=== PATIENT | male | born 1980 | race Caucasian/White ===

== ENCOUNTER 2019-03-15 01:47 | Emergency (ER) | payer OTHER ==
[2019-03-15 02:03] VITALS: BP 117/75
[2019-03-15] MEDS ORDERED: CHERRY SYRUP 10 ML UDC PO ONE (02:11)
[2019-03-15] MEDS ORDERED: DEXAMETHASONE 10 MG/ML VIAL PO STA (02:11)
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
== END 2019-03-15 03:00 | disposition home or self-care (01) ==
LOC: ED 01:47
DX: J70.5 Respiratory conditions due to smoke inhalation (principal); X08.8XXA Exposure to other specified smoke, fire and flames, initial encounter; Y92.009 Unspecified place in unspecified non-institutional (private) residence as the place of occurrence of the external cause; F17.200 Nicotine dependence, unspecified, uncomplicated
CPT/HCPCS: 71046; 99283; A9270

== ENCOUNTER 2019-06-28 14:54 | Emergency (ER) | payer OTHER ==
--- NOTE | 2019-06-28 18:04 | ED Physician Documentation ---
History of Present Illness - Stated complaint Stated Complaint: COUGH, CONGESTION - Chief complaint Chief Complaint: Resp - History obtained from History obtained from: Patient - History of Present Illness Pain level max: 0 Pain level now: 0 - Additonal information Additional information: 38-year-old male who is otherwise healthy presents to the emergency department because of cough since June 13, 2019. Patient started with a sore throat initial and then a fever for 2 days. Patient went to an urgent care and was prescribed Tessalon Perles and Sudafed. Patient denies any nausea, vomiting or diarrhea. Patient started feeling better until about a week ago when he started to have a nonproductive cough. Patient also reported of blood tinge sputum yesterday and when he blows his nose, he had a nosebleed as well. He denies a fever currently. Cough is worse at night. Patient has taken tzgs-pxs-zjrvfyw Robitussin without improvement of his cough. His had similar symptoms after the patient gotten sick but she is already doing better. Review of Systems Constitutional: reports: Fever, Chills Eyes: denies: Loss of vision, Decreased vision, Photophobia Ears: denies: Loss of hearing, Ear pain, Drainage/discharge Nose: reports: Epistaxis, Other (+sore throat) Throat: denies: Dental pain / toothache, Oral lesions / sores Cardiac: denies: Chest pain / pressure, Palpitations Respiratory: reports: Cough. denies: Dyspnea, Wheezing GI: denies: Abdominal Pain, Abdominal Swelling, Nausea Skin: denies: Rash Musculoskeletal: denies: Neck pain, Back pain, Extremity pain, Joint pain PD PAST MEDICAL HISTORY - Past Medical History Cardiovascular: None Respiratory: None Neuro: None Endocrine/Autoimmune: None GI: None : None HEENT: None Psych: None Musculoskeletal: None Derm: None - Past Surgical History Past Surgical History: Yes General: Other - Present Medications Home Medications: Ambulatory Orders Medication Instructions Recorded Confirmed Doxycycline Hyclate 100 mg PO BID #20 capsule 06/28/19 guaiFENesin/DEXTROMETHORPHAN 10 ml PO Q8H PRN #120 ml 06/28/19 [Robitussin Dm] - Allergies Allergies/Adverse Reactions: Allergies Allergy/AdvReac Type Severity Reaction Status Date / Time No Known Drug Allergies Allergy Verified 06/28/19 15:20 - Social History Does the pt smoke?: Yes Smoking Status: Current every day smoker Does the pt drink ETOH?: Yes Does the pt have substance abuse?: No - Immunizations Immunizations are current?: Yes - POLST Patient has POLST: No PD ED PE NORMAL - Vitals Vital signs reviewed: Yes - General General: Alert and oriented X 3, No acute distress - HEENT HEENT: Atraumatic, Moist mucous membranes, Pharynx benign, Other (no drooling or stridor) - Neck Neck: Supple, no meningeal sign - Cardiac Cardiac: RRR, No murmur - Respiratory Respiratory: No respiratory distress, Other (diminished at bibasilar lung bases) - Abdomen Abdomen: Normal bowel sounds, Soft - Back Back: No CVA TTP - Extremities Extremities: No deformity, No tenderness to palpate, No edema - Neuro Neuro: Alert and oriented X 3, No motor deficit, No sensory deficit, Normal speech Eye Opening: Spontaneous Motor: Obeys Commands Verbal: Oriented GCS Score: 15 Results - Vitals Vitals: Vital Signs - 24 hr 06/28/19 15:20 Temperature 36.6 C Heart Rate 71 Respiratory 14 Rate Blood Pressure 135/74 H O2 Saturation 97 Oxygen O2 Source Room air - Labs Labs: Laboratory Tests 06/28/19 15:25 Influenza A (Rapid) Negative Influenza B (Rapid) Negative PD MEDICAL DECISION MAKING - ED course Complexity details: re-evaluated patient, d/w patient, d/w family ED course: 38-year-old male presented to the emergency department because of coughing, congestion, fever that started on June 13, 2019. Patient initially also had a sore throat that has since resolved. Patient will be afebrile. Vitals are stable. Oxygen saturation was within normal limits. He is not tachycardic or tachypneic. Influenza was negative. Chest x-ray did not show acute cardiopulmonary process. Symptoms are most consistent with acute bronchitis. Given the fact that the patient's have had symptom for2 weeks without improving, I will go ahead and prescribe a course of antibiotic. Patient was prescribed doxycycline for total of 10 days. Patient was prescribed Robitussin DM for cough as needed.Strict return instructions were given. Patient expressed verbal understanding. His was at bedside. All questions were addressed. Outpatient follow-up with her primary care doctor in 3 to 5 days was recommended.Patient was discharged in stable condition. Departure - Departure Clinical Impression: Bronchitis Condition: Stable Instructions: Bronchitis Acute Dc Prescriptions: Doxycycline Hyclate 100 mg PO BID #20 capsule guaiFENesin/DEXTROMETHORPHAN [Robitussin Dm] 10 ml PO Q8H PRN #120 ml PRN Reason: Cough Comments: PLEASE FOLLOW UP WITH A REGULAR DOCTOR IN 5 DAYS. PLEASE FOLLOW UP WITH A REGULAR DOCTOR TO RECHECK YOUR BLOOD PRESSURE. IT IS MILDLY ELEVATED TODAY. PLEASE RETURN TO THE EMERGENCY DEPARTMENT IF YOU EXPERIENCE A FEVER OF 100.4 OR GREATER, SHORTNESS OF BREATH, DIZZINESS OR ANY NEW OR CONCERNING SYMPTOMS.
[2019-06-28 18:51] VITALS: BP 125/80
--- NOTE | 2019-06-28 19:13 | XRAY Report ---
Reason: cough x 2 weeks, fever Procedure Date: 06/28/2019 Accession Number: [id number] / [id number] Procedure: XR - Chest 2 View X-Ray CPT Code: 48680 Final Report FULL RESULT: EXAM: CHEST RADIOGRAPHY EXAM DATE: 06/28/2019 06:32 PM. CLINICAL HISTORY: Cough x 2 weeks, fever. COMPARISON: CHEST 2 VIEW 03/15/2019 2:16 AM. TECHNIQUE: 2 views. FINDINGS: Lungs/Pleura: No dense consolidation. No large effusion or pneumothorax. No pulmonary edema. Mediastinum: Heart and mediastinal contours are unremarkable. Other: None. IMPRESSION: No acute radiographic pulmonary abnormalities. RADIA
== END 2019-06-28 19:26 | disposition home or self-care (01) ==
LOC: ED 14:54
DX: F17.200 Nicotine dependence, unspecified, uncomplicated (principal); J40 Bronchitis, not specified as acute or chronic
CPT/HCPCS: 71046; 87275; 87276; 99284

== ENCOUNTER 2020-12-01 08:52 | Emergency (ER) | payer OTHER ==
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
--- NOTE | 2020-12-01 10:47 | Ultrasound Report ---
PROCEDURE: Ext Limited Non Vascular INDICATIONS: L arm mass TECHNIQUE: Real-time scanning was performed of the left upper arm, with image documentation. COMPARISON: None. FINDINGS: Ultrasound evaluation in the area of palpable abnormality within the left upper arm demonstrates an i soechoic oval subcutaneous mass with indistinct margins measuring approximately 1.4 x 0.4 x 1.7 cm. N o internal increased vascularity on color Doppler interrogation. IMPRESSION: 1. Subcutaneous isoechoic mass with indistinct margins demonstrated in the area of palpable abnormali ty likely represents a lipoma. The differential includes an atypical lipomatous tumor or low-grade li posarcoma which cannot be distinguished by imaging. Recommend follow-up clinically. Reviewed by: Maxi Lucas MD on 12/01/2020 10:46 AM PDT Approved by: Maxi Lucas MD on 12/01/2020 10:46 AM PDT Station ID: [id number]
[2020-12-01 11:34] VITALS: BP 135/68
== END 2020-12-01 11:33 | disposition home or self-care (01) ==
LOC: ED 08:52
DX: M54.32 Sciatica, left side (principal); D17.22 Benign lipomatous neoplasm of skin and subcutaneous tissue of left arm; F17.200 Nicotine dependence, unspecified, uncomplicated
CPT/HCPCS: 99284